=== PATIENT | male | born 1970 | race Caucasian/White ===

== ENCOUNTER 2020-05-05 07:22 | Outpatient (CLI) | payer MEDICARE, MEDICAID, SELFPAY ==
--- NOTE | ~2020-05-05 | XR_ITS ---
EXAMINATION: XR barium swallow DATE: 05/05/2020 08:15 INDICATION: Dysphagia, abdominal pain, nausea TECHNIQUE: The patient drank thick barium, gas-producing crystals, and thin barium. Fluoroscopy of th e hypopharynx and esophagus was performed. Fluoroscopy exposure time was 1.2 minutes. The DAP for thi s procedure was 12.063 Gycm2. COMPARISON: None. FINDINGS: There is no mass or stricture of the esophagus. Esophageal motility is normal. There is [no hiatal hernia. There was no gastroesophageal reflux with provocative maneuvers.] IMPRESSION: 1. Unremarkable esophagram. Reviewed, dictated and finalized at location A. IMPRESSION: 1. Unremarkable esophagram.
== END 2020-05-05 07:23 | disposition home or self-care (01) ==
PROVIDERS: PCP Emergency Medicine; Visit Provider Internal Medicine Gastroenterology
DX: K59.00 Constipation, unspecified (principal); Z86.010 Personal history of colon polyps; R13.10 Dysphagia, unspecified; R10.84 Generalized abdominal pain; R11.0 Nausea; R14.0 Abdominal distension (gaseous)
CPT/HCPCS: 74220

== ENCOUNTER 2020-05-08 16:48 | Outpatient (CLI) | payer MEDICARE, MEDICAID, SELFPAY ==
[2020-05-08 17:17] LABS: Hematocrit 43.2 % (42.0-52.0); Hemoglobin 14.8 g/dL (14.0-18.0); Mean Corpuscular HGB Conc 34.3 g/dl (32-36); Mean Corpuscular Volume 90.6 fl (80-100); Mean Platelet Volume 10.1 fl (7.4-10.4); Platelet Count Result 157 k/mm3 (150-375); Red Blood Count 4.77 M/mm3 (4.6-6.20); Red Cell Distribution Width 12.9 % (11.5-14.5); White Blood Count 7.8 K/mm3 (4.5-10.0)
[2020-05-08 17:31] LABS: Alanine Aminotransferase 23 U/L (4-50); Albumin Level 4.5 g/dL (3.5-5.1); Alkaline Phosphatase 65 U/L (38-126); Amylase 69 U/L (30-110); Aspartate Amino Transferase 26 U/L (17-59); Bilirubin,Total 0.5 mg/dL (0.2-1.3); Blood Urea Nitrogen 21 mg/dL (9-20); Calcium 9.4 mg/dL (8.4-10.2); Carbon Dioxide 32 mmol/L (22-30); Chloride 97 mmol/L (98-107); Estimated Glomerular Filt Rate > 60; Glucose 165 mg/dL (75-110); Lipase 31 U/L (23-300); Potassium 4.3 mmol/L (3.4-5.0); Sodium 136 mmol/L (137-145)
[2020-05-08 18:09] LABS: Free T4 Free Thyroxine 1.18 ng/mL (0.78-2.19)
== END 2020-05-08 16:49 | disposition home or self-care (01) ==
LOC: ANHLAB 16:54
PROVIDERS: PCP Emergency Medicine; Visit Provider Internal Medicine Gastroenterology
DX: K59.00 Constipation, unspecified (principal); Z86.010 Personal history of colon polyps; R13.10 Dysphagia, unspecified; R10.84 Generalized abdominal pain; R11.0 Nausea; R14.0 Abdominal distension (gaseous)
CPT/HCPCS: 36415; 80053; 82150; 83690; 84439; 84443; 85027